=== PATIENT | female | born 1990 | race Asian ===

== ENCOUNTER 2023-02-11 05:00 | Emergency (ER) | payer OTHER ==
[~2023-02-11] VITALS: Ht 160 cm; Wt 109.1 kg
[2023-02-11] MEDS ORDERED: PERTUSS(ACELL),DIPH,TET VAC/PF 0.5 ML SYRINGE IM. ONE (05:15)
[2023-02-11] MEDS ORDERED: IBUPROFEN 600 MG TABLET PO ONE (05:15)
[2023-02-11] MEDS ORDERED: BACITRACIN 0.9 GM PACKET OINTMENT TP ONE (05:15)
[2023-02-11] MEDS ORDERED: AMOX TR/POT CLAV 875 MG/125 MG TABLET PO ONE (05:15)
[2023-02-11] MEDS ORDERED: IBUP-1492 PO (05:16)
[2023-02-11] MEDS ORDERED: AMOX1TAB16 PO (05:16)
[2023-02-11 05:25] VITALS: BP 138/85; PULSE 75; RESP 17; TEMP 97.9
== END 2023-02-11 06:01 | disposition home or self-care (01) ==
LOC: EDUNIT# 05:00 → EMS 05:02
DX: S61.251A Open bite of left index finger without damage to nail, initial encounter (principal); F17.210 Nicotine dependence, cigarettes, uncomplicated; W55.01XA Bitten by cat, initial encounter; Y93.89 Activity, other specified; Y92.89 Other specified places as the place of occurrence of the external cause; Y99.8 Other external cause status
CPT/HCPCS: 90471; 90715; 99284

== ENCOUNTER 2024-02-13 17:48 | Emergency (ER) | payer OTHER ==
[~2024-02-13] VITALS: Ht 160 cm; Wt 109.1 kg
[~2024-02-13 17:48] MED LIST: AMOX-457 PO; IBUP-1492 PO
[2024-02-13 17:52] VITALS: BP 158/87; PULSE 80; RESP 18; TEMP 98.2; O2SAT 99
[2024-02-13] MEDS ORDERED: LIDO700A15 TP (23:02)
[2024-02-14] MEDS: LIDOCAINE 5% TRANSDERMAL PATCH TD ONE (00:20)
[2024-02-14] MEDS: IBUPROFEN 600 MG TABLET PO ONE (00:21)
== END 2024-02-14 00:55 | disposition home or self-care (01) ==
LOC: EMS 17:55
DX: S16.1XXA Strain of muscle, fascia and tendon at neck level, initial encounter (principal); F17.210 Nicotine dependence, cigarettes, uncomplicated; V43.52XA Car driver injured in collision with other type car in traffic accident, initial encounter; Y93.89 Activity, other specified; Y92.410 Unspecified street and highway as the place of occurrence of the external cause; Y99.8 Other external cause status
CPT/HCPCS: 99283